=== PATIENT | male | born 1945 | race African-American/Black ===

== ENCOUNTER 2016-11-14 18:25 | Emergency (ER) | payer OTHER ==
[~2016-11-14] VITALS: Ht 175.3 cm; Wt 90.7 kg
[~2016-11-14 18:25] MED LIST: AUGMENTIN 875-1 EAC1 ORAL; AZITHROMYCIN250 MG ORAL; LEVAQUIN500 MG PO; NKM; NORCO 5-325 TA1 EACH ORAL; NORVASC5 MG ORAL; OMEPRAZOLE40 M1 ORAL; PHENERGAN/CODE120 ML PO; PHENERGAN6.25 MG/5 ORAL; PRILOSEC20 MG ORAL; PROMETHAZINE-C118 M1 ORAL; ROBAXIN-750750 MG PO; TAMIFLU75 MG ORAL; UNOBMED; ZANTAC150 MG ORAL
[2016-11-14 18:55] VITALS: BP 148/93
--- NOTE | 2016-11-14 19:42 | Emergency Room Report ---
History of Present Illness General Chief Complaint: Upper Respiratory Illness Source: Patient Present Illness HPI Patient presents with complaints of cough and congestion Sore throat Patient felt some epigastric discomfort as well He does complain of sputum production with the cough Denies any back or flank pain Patient complaining of some left-sided facial neuropathy as well associated with this Denies any headache denies any neck pain or photophobia Denies any fall or trauma Denies any focal weakness Allergies: Coded Allergies: No Known Allergies (Unverified , 08/08/12) Patient History Past Medical History: see triage record Pertinent Family History: none Reviewed Nursing Documentation: PMH: Agreed, PSxH: Agreed Nursing Documentation-PMH Hx Cardiac Problems: Yes - HTN Hx Hypertension: Yes Hx Cancer: No Hx Gastrointestinal Problems: No Hx Neurological Problems: No Review of Systems All Other Systems: negative except mentioned in HPI Physical Exam Vital Signs Date Time Temp Pulse Resp B/P Pulse Ox O2 Delivery O2 Flow Rate FiO2 11/14/16 18:32 98.8 60 16 151/95 95 Room Air Sp02 EP Interpretation: reviewed, normal General Appearance: well appearing, no apparent distress Head: normocephalic, atraumatic Eyes: bilateral eye EOMI, bilateral eye PERRL ENT: hearing grossly normal, normal pharynx, TMs + canals normal, uvula midline Neck: full range of motion, supple, no meningismus, no bony tend Respiratory: lungs clear, normal breath sounds, no rhonchi, no respiratory distress, no retraction, no accessory muscle use Cardiovascular #1: normal peripheral pulses, regular rate, rhythm, no edema, no gallop, no JVD, no murmur Gastrointestinal: normal bowel sounds, non tender, soft, no mass, no organomegaly, non-distended, no guarding, no hernia, no pulsatile mass, no rebound Genitourinary: no CVA tenderness Musculoskeletal: normal inspection Neurologic: oriented x3, responsive, industrial roofer helper III-XII nml as tested, motor strength/ tone normal, sensory intact Psychiatric: mood/affect normal Skin: normal color, no rash, warm/dry, palpation normal Lymphatic: normal inspection, no adenopathy Medical Decision Making Diagnostic Impression: Primary Impression: Upper respiratory infection Additional Impressions: Bronchitis Influenza-like illness ER Course Multiple differentials were considered given the patient's presentation Patient's facial discomfort appears to be mainly in the sinus region for had an axillary White blood for count was mildly low in line with a likely viral presentation Patient's x-rays appropriate Saturation and hemodynamically continues to be appropriate I did not feel the patient met any further criteria for imaging or inpatient care and will have initial conservative outpatient trial Labs Test 11/14/16 20:00 White Blood Count 3.8 K/UL (4.8-10.8) Red Blood Count 5.66 M/UL (4.70-6.10) Hemoglobin 16.5 G/DL (14.2-18.0) Hematocrit 51.4 % (42.0-52.0) Mean Corpuscular Volume 91 FL (80-99) Mean Corpuscular Hemoglobin 29.1 PG (27.0-31.0) Mean Corpuscular Hemoglobin Concent 32.0 G/DL (32.0-36.0) Red Cell Distribution Width 13.1 % (11.6-14.8) Platelet Count 225 K/UL (150-450) Mean Platelet Volume 8.1 FL (6.5-10.1) Neutrophils (%) (Auto) 50.5 % (45.0-75.0) Lymphocytes (%) (Auto) 27.4 % (20.0-45.0) Monocytes (%) (Auto) 18.9 % (1.0-10.0) Eosinophils (%) (Auto) 0.5 % (0.0-3.0) Basophils (%) (Auto) 2.7 % (0.0-2.0) Sodium Level 139 mEQ/L (135-145) Potassium Level 3.7 mEQ/L (3.4-4.9) Chloride Level 98 mEQ/L (98-107) Carbon Dioxide Level 25 mEQ/L (20-30) Anion Gap 16 (5-15) Blood Urea Nitrogen 13 mg/dL (7-23) Creatinine 1.2 mg/dL (0.7-1.2) Estimat Glomerular Filtration Rate mL/min (>60) Glucose Level 98 mg/dL (74-106) Calcium Level 8.3 mg/dL (8.6-10.2) Total Bilirubin < 0.2 mg/dL (0.0-1.2) Aspartate Amino Transf (AST/SGOT) 20 U/L (5-40) Alanine Aminotransferase (ALT/SGPT) 12 U/L (3-41) Alkaline Phosphatase 78 U/L (40-129) Total Creatine Kinase 149 U/L (38-174) Creatine Kinase MB < 1.5 ng/mL (< 6.7) Creatine Kinase MB Relative Index 1.0 Troponin I < 0.30 ng/mL (<=0.30) Pro-B-Type Natriuretic Peptide 63 pg/mL (0-125) Total Protein 6.7 g/dL (6.6-8.7) Albumin 3.9 g/dL (3.5-5.2) Globulin 2.8 g/dL Albumin/Globulin Ratio 1.3 (1.0-2.7) Rhythm Strip Diag. Results EP Interpretation: yes Rate: 67 Rhythm: NSR, no PVC's, no ectopy Chest X-Ray Diagnostic Results EP Interpretation: Yes Findings: no consolidation, no effusion, no pneumothorax Number of Views: 1 Last Vital Signs Date Time Temp Pulse Resp B/P Pulse Ox O2 Delivery O2 Flow Rate FiO2 11/14/16 18:57 60 16 Room Air 11/14/16 18:55 98.7 148/93 96 Status: improved Disposition: HOME, SELF-CARE Condition: Improved Scripts Ibuprofen* (MOTRIN*) 600 Mg Tablet 600 MG ORAL Q8H Y for For Pain, #20 TAB 0 Refills Prov: CECILY HOUGH D.O. 11/14/16 Promethazine HCl/Codeine (Prometh-Codein 6.25-10 mg/5 ml) 5 Ml Syrup 5 ML PO QHS for 5 Days, ML Prov: CECILY HOUGH D.O. 11/14/16 Azithromycin* (ZITHROMAX*) 250 Mg Tablet 250 MG ORAL DAILY, #6 TAB 0 Refills Take two tablets by mouth today, then take one tablet by mouth daily for four days Prov: CECILY HOUGH D.O. 11/14/16 Additional Instructions: Patient is provided with the discharge instructions notified to follow up with primary doctor in the next 2-3 days otherwise return to the er with any worsening symptoms. CECILY HOUGH D.O. Nov 14, 2016 19:42
[2016-11-14 20:08] LABS: BASOPHILS % (AUTO) 2.7 % (0.0-2.0); EOSINOPHILS % (AUTO) 0.5 % (0.0-3.0); LYMPHOCYTES % (AUTO) 27.4 % (20.0-45.0); MEAN CORPUSCULAR HEMOGLOBIN 29.1 PG (27.0-31.0); MEAN CORPUSCULAR VOLUME 91 FL (80-99); MEAN PLATELET VOLUME 8.1 FL (6.5-10.1); MONOCYTES % (AUTO) 18.9 % (1.0-10.0); NEUTROPHILS % (AUTO) 50.5 % (45.0-75.0); PLATELET COUNT 225 K/UL (150-450); RED BLOOD COUNT 5.66 M/UL (4.70-6.10); RED CELL DISTRIBUTION WIDTH 13.1 % (11.6-14.8); WHITE BLOOD COUNT 3.8 K/UL (4.8-10.8)
[2016-11-14 20:25] LABS: TROPONIN I < 0.30 ng/mL (<=0.30)
[2016-11-14 20:26] LABS: ALANINE AMINOTRANSFERASE 12 U/L (3-41); ALBUMIN/GLOBULIN RATIO 1.3 (1.0-2.7); ASPARTATE AMINO TRANSFERASE 20 U/L (5-40); CALCIUM 8.3 mg/dL (8.6-10.2); CHLORIDE 98 mEQ/L (98-107); CREATININE 1.2 mg/dL (0.7-1.2); HEMOLYSIS 4; POTASSIUM 3.7 mEQ/L (3.4-4.9); SODIUM 139 mEQ/L (135-145); TOTAL PROTEIN 6.7 g/dL (6.6-8.7)
[2016-11-14 20:36] LABS: CKMB < 1.5 ng/mL (< 6.7)
[2016-11-14 20:39] VITALS: BP 151/91
[2016-11-14] MEDS ORDERED: Ketorolac 30mg Inj IV ONE (20:45)
[2016-11-14 20:46] LABS: ANION GAP 16 (5-15); CARBON DIOXIDE 25 mEQ/L (20-30)
[2016-11-14] MEDS ORDERED: IBUPROFEN600 MG ORAL (21:01)
[2016-11-14] MEDS ORDERED: AZITHROMYCIN250 MG ORAL (21:01)
[2016-11-14] MEDS ORDERED: PROMETH-CODEIN 65 ML PO (21:01)
[2016-11-14 21:37] VITALS: BP 151/91
--- NOTE | 2016-11-15 08:59 | Diagnostic Imaging Report ---
Indications: Chest pain Technique: Portable AP chest Findings: Comparison: None Cardiac silhouette remains normal in size. Pulmonary vasculature remains within normal limits. Lungs and pleura remain clear. Mild elongation of thoracic aorta, focal eventration medial aspect right hemidiaphragm unchanged. IMPRESSION: No evidence of acute disease, unchanged Stable chronic changes as described
== END 2016-11-14 21:37 | disposition home or self-care (01) ==
LOC: EMR 19:00
DX: J40 Bronchitis, not specified as acute or chronic (principal); J11.1 Influenza due to unidentified influenza virus with other respiratory manifestations; I10 Essential (primary) hypertension
CPT/HCPCS: 36415; 71010; 80053; 82550; 82553; 83880; 84484; 85025; 96374; 96375; 99284; J1885; J7040

== ENCOUNTER 2018-07-23 14:24 | Emergency (ER) | payer OTHER ==
[~2018-07-23] VITALS: Ht 175.3 cm; Wt 86.2 kg
[~2018-07-23 14:24] MED LIST changes: +IBUPROFEN600 MG ORAL; +PROMETH-CODEIN 65 ML PO
[2018-07-23 14:53] VITALS: BP 140/90
[2018-07-23] MEDS ORDERED: Methocarbamol 500mg tab ORAL ONE (15:00)
[2018-07-23] MEDS ORDERED: Ketorolac 30mg Inj IM ONE (15:00)
--- NOTE | 2018-07-23 15:09 | Emergency Room Report ---
History of Present Illness General Chief Complaint: Pain Source: Patient Present Illness HPI 73-year-old male patient presents ER complaining of left shoulder and arm pain for the past 4 days. States that 3 days ago he went to [facility] to be seen for pain symptoms. Reports that he had x-ray and labs done at that time and they were negative for any cardiac disease or fracture, was instructed to follow-up with PCP to get MRI. States that he was instructed to return to the hospital pain symptoms worsen, was discharged with ibuprofen 600 mg, states it is been taking the ibuprofen but it has not helped with the pain symptoms. Denies injury or trauma, states that he "may have slept funny" which is causing his pain symptoms. Reports pain with elevating arm above his head. Reports right-hand dominant. Reports numbness and tingling in hands, denies complete loss of sensation. Reports no history of diabetes. Denies history of stroke or heart attack. States came to the ER today for further pain relief. denies fever, chest pain, shortness of breath, abdominal pain. reports history of high blood pressure, states does not take any medication. Allergies: Coded Allergies: No Known Allergies (Unverified , 08/08/12) Patient History Past Medical History: see triage record Reviewed Nursing Documentation: PMH: Agreed; PSxH: Agreed Nursing Documentation-PMH Past Medical History: No History, Except For Hx Cardiac Problems: Yes - heart valve problem Hx Hypertension: Yes Hx Cancer: No Hx Gastrointestinal Problems: No Hx Neurological Problems: No Review of Systems All Other Systems: negative except mentioned in HPI Physical Exam Vital Signs Date Time Temp Pulse Resp B/P (MAP) Pulse Ox O2 Delivery O2 Flow Rate FiO2 07/23/18 14:30 97.9 71 16 140/90 95 Room Air 97.9 Sp02 EP Interpretation: reviewed, normal General Appearance: well appearing, no apparent distress, alert, GCS 15, non- toxic Head: normocephalic, atraumatic Eyes: bilateral eye normal inspection, bilateral eye PERRL ENT: hearing grossly normal, normal pharynx, no angioedema, normal voice, uvula midline, moist mucus membranes Neck: full range of motion Respiratory: lungs clear, normal breath sounds, no rhonchi, no respiratory distress, no accessory muscle use, no wheezing, speaking full sentences Cardiovascular #1: regular rate, rhythm, no edema Cardiovascular #2: 2+ radial (R), 2+ radial (L) Musculoskeletal: back normal, digits/nails normal, gait/station normal, other - full passive range of motion, decreased passive range of motion, NVI, sensation intaction to light touch, tender - left shoulder Neurologic: alert, oriented x3, responsive, motor strength/tone normal, sensory intact Psychiatric: mood/affect normal Skin: no rash Lymphatic: no adenopathy Medical Decision Making PA Attestation Dr. Perry is my supervising Physician whom patient management has been discussed with. Diagnostic Impression: Primary Impression: Shoulder sprain ER Course Pt. presents to the ED c/o chest pain. Ddx considered but are not limited to [place], arrhythmia, DVT, PE, penumonia, bronchitis, costochondritis, anxiety, sprain, strain, arthritis. no erythema, no edema, no warmth to touch, low suspicion for septic joint. Low suspicion for cardiac cause of pain. Will order labs to rule out. Vital signs: are WNL, pt. is afebrile Blood pressure mildly elevated at this time, will continue to monitor. Denies chest pain, shortness of breath, vision changes, does not require acute intervention at ER at this time. Follow with primary care provider discuss further treatment and referral. Advised on low-sodium diet, advised on diet and exercise. Ordered X-ray, US, labs, troponin, EKG and pain medication. ER COURSE EKG shows no ST elevations or arrhythmias, repeat EKG consistent with initial EKG findings. Labs shows no elevation in WBC or LFTs, no electrolyte abnormalities CK-MB, ESR within normal limits Troponin negative CXR negative for acute disease Discuss results with the patient. Provided patient with copy of results. Instructed patient to followup with PCP and discuss results of report with patient, discuss need for further treatment and referral. Patient denies shortness of breath, EKG and chest x-ray unremarkable, troponin negative, low suspicion for [place] or CHF. Low suspicion for cardiac etiology of pain. Followup with primary care provider, discuss referral to cardiology and urban gardening specialist for MRI to discuss blood pressure. US of left upper extremity negative for DVT. Pain in arm and shoulder worse with movement, likely musculoskeletal in nature, patient has full passive range of motion, needs MRI outpatient basis. Patient reports xray done previously negative, no acute trauma or injury since that time, does not require repeat xray currently. Patient reports pain symptoms improved while in the ER. will provide patient with arm sling, instructed to increase ROM and perform exercises to prevent stiffness. Provided with contact information for orthopedic urgent care, call schedule appointment, discuss referral to physical therapy and pain management at that time, discuss need for MRI imaging of shoulder. Provided patient with contact information for free and low-cost healthcare clinics unable to contact insurance and get a primary care provider to establish care. DISCHARGE: Rx provided for Robaxin Rx provided for lidocaine patches At this time pt. is stable for d/c to home. Patient is resting comfortably, in no acute distress, nontoxic appearing, talking without difficulty. Will provide printed patient care instructions, and any necessary prescriptions. Patient instructed to follow with primary care provider in 1-3 days. Followup with primary care provider for further pain medication rx. Followup with produce clerk and eye doctor. Care plan and follow up instructions have been discussed with the patient prior to discharge. Take medications as directed. Patient questions asked and answered. Patient reports understanding and agreement to treatment plan. ER precautions given, patient instructed to return to ER immediately for any new or worsening of symptoms. - Please note that this Emergency Department Report was dictated using [employer] forwarding system markup clerk technology software, occasionally this can lead to erroneous entry secondary to interpretation by the dictation equipment. Labs Test 07/23/18 15:40 White Blood Count 10.3 K/UL (4.8-10.8) Red Blood Count 5.52 M/UL (4.70-6.10) Hemoglobin 15.2 G/DL (14.2-18.0) Hematocrit 46.7 % (42.0-52.0) Mean Corpuscular Volume 85 FL (80-99) Mean Corpuscular Hemoglobin 27.5 PG (27.0-31.0) Mean Corpuscular Hemoglobin Concent 32.5 G/DL (32.0-36.0) Red Cell Distribution Width 12.8 % (11.6-14.8) Platelet Count 343 K/UL (150-450) Mean Platelet Volume 7.4 FL (6.5-10.1) Neutrophils (%) (Auto) 65.5 % (45.0-75.0) Lymphocytes (%) (Auto) 22.3 % (20.0-45.0) Monocytes (%) (Auto) 7.6 % (1.0-10.0) Eosinophils (%) (Auto) 4.0 % (0.0-3.0) Basophils (%) (Auto) 0.7 % (0.0-2.0) Erythrocyte Sedimentation Rate 13 MM/HR (0-20) Sodium Level 141 MMOL/L (136-145) Potassium Level 4.5 MMOL/L (3.5-5.1) Chloride Level 106 MMOL/L (98-107) Carbon Dioxide Level 26 MMOL/L (21-32) Anion Gap 9 mmol/L (5-15) Blood Urea Nitrogen 14 mg/dL (7-18) Creatinine 1.2 MG/DL (0.55-1.30) Estimat Glomerular Filtration Rate mL/min (>60) Glucose Level 90 MG/DL (74-106) Calcium Level 9.0 MG/DL (8.5-10.1) Total Bilirubin 0.3 MG/DL (0.2-1.0) Aspartate Amino Transf (AST/SGOT) 18 U/L (15-37) Alanine Aminotransferase (ALT/SGPT) 26 U/L (12-78) Alkaline Phosphatase 110 U/L (46-116) Total Creatine Kinase 175 U/L (26-308) Creatine Kinase MB 1.1 NG/ML (0.0-3.6) Creatine Kinase MB Relative Index 0.6 Troponin I 0.000 ng/mL (0.000-0.056) Total Protein 7.6 G/DL (6.4-8.2) Albumin 3.9 G/DL (3.4-5.0) Globulin 3.7 g/dL Albumin/Globulin Ratio 1.1 (1.0-2.7) EKG Diagnostic Results Rate: normal Rhythm: NSR ST Segments: no acute changes ASA given to the pt in ED: No PA Scribe Text Tre Villarreal PA-C Rhythm Strip Diag. Results EP Interpretation: yes Rate: 63 Rhythm: NSR, no PVC's, no ectopy PA Scribe Text Tre Villarreal PA-C Chest X-Ray Diagnostic Results Chest X-Ray Diagnostic Results : Chest X-Ray Ordered: Yes # of Views/Limited/Complete: 1 View Indication: Chest Pain EP Interpretation: Yes PA Xray: Interpretation reviewed, by supervising MD, and agrees with findings. Interpretation: no consolidation, no effusion, no pneumothorax, no acute cardiopulmonary disease Impression: No acute disease PEARL Villarreal PA-C CT/MRI/US Diagnostic Results CT/MRI/US Diagnostic Results : Imaging Test Ordered: left arm upper extremity US Impression negative for DVT, everything within normal limits Last Vital Signs Date Time Temp Pulse Resp B/P (MAP) Pulse Ox O2 Delivery O2 Flow Rate FiO2 07/23/18 15:01 97.9 07/23/18 14:53 71 16 140/90 95 Room Air Status: improved Disposition: HOME, SELF-CARE Condition: Stable Scripts Methocarbamol* (ROBAXIN*) 500 Mg Tablet 500 MG PO TID, #21 TAB 0 Refills Prov: Forrest Villarreal 07/23/18 Lidocaine (Lidocaine) 1 Each Adh..patch 5 % TP DAILY for 7 Days, #7 PATCH Prov: Forrest Villarreal 07/23/18 Referrals: [facility]ERR[facility] (PCP) Patient Instructions: Generic Shoulder Exercises-SportsMed, Impingement Syndrome, Rotator Cuff, Bursitis With Rehab-SportsMed, Shoulder Sprain Additional Instructions: Patient instructed to follow up with primary care provider and discuss further referral to orthopedics/physical therapy/pain management as needed. If unable to followup with PCP, followup with orthopedic urgent care in 5-7 days , call to schedule appointment. Patient instructed on RICE method: rest, ice, compression, elevation. Patient instructed to WBAT. Take medications as directed. Patient questions asked and answered. ER precautions given, patient instructed to return to ER immediately for any new or worsening of symptoms. [facility] [address] [facility], [address] [email or web address] Forrest Villarreal Jul 23, 2018 15:08
--- NOTE | 2018-07-23 15:48 | Diagnostic Imaging Report ---
EXAM: XR Chest, 1 View CLINICAL HISTORY: PAIN TECHNIQUE: Frontal view of the chest. COMPARISON: No relevant prior studies available. FINDINGS: Lungs: No consolidation. Pleural space: Unremarkable. No pneumothorax. Heart: Unremarkable. No cardiomegaly. Mediastinum: Unremarkable. Bones/joints: No acute fracture. IMPRESSION: No acute cardiopulmonary disease.
[2018-07-23 15:53] LABS: BASOPHILS % (AUTO) 0.7 % (0.0-2.0); HEMATOCRIT 46.7 % (42.0-52.0); HEMOGLOBIN 15.2 G/DL (14.2-18.0); LYMPHOCYTES % (AUTO) 22.3 % (20.0-45.0); MEAN CORPUSCULAR VOLUME 85 FL (80-99); MONOCYTES % (AUTO) 7.6 % (1.0-10.0); NEUTROPHILS % (AUTO) 65.5 % (45.0-75.0); PLATELET COUNT 343 K/UL (150-450); RED BLOOD COUNT 5.52 M/UL (4.70-6.10); RED CELL DISTRIBUTION WIDTH 12.8 % (11.6-14.8); WHITE BLOOD COUNT 10.3 K/UL (4.8-10.8)
[2018-07-23 16:02] LABS: ANION GAP 9 mmol/L (5-15); BLOOD UREA NITROGEN 14 mg/dL (7-18); CARBON DIOXIDE 26 MMOL/L (21-32); CHLORIDE 106 MMOL/L (98-107); CREATININE 1.2 MG/DL (0.55-1.30); POTASSIUM 4.5 MMOL/L (3.5-5.1); SODIUM 141 MMOL/L (136-145)
[2018-07-23 16:16] LABS: ALANINE AMINOTRANSFERASE 26 U/L (12-78); ALBUMIN 3.9 G/DL (3.4-5.0); ALBUMIN/GLOBULIN RATIO 1.1 (1.0-2.7); ALKALINE PHOSPHATASE 110 U/L (46-116); ASPARTATE AMINO TRANSFERASE 18 U/L (15-37); BILIRUBIN,TOTAL 0.3 MG/DL (0.2-1.0); CKMB 1.1 NG/ML (0.0-3.6); CREATINE KINASE 175 U/L (26-308)
[2018-07-23] MEDS ORDERED: LIDOCAINE700 M1 TP (17:00)
[2018-07-23] MEDS ORDERED: ROBAXIN500 MG PO (17:00)
[2018-07-23 17:10] VITALS: BP 135/85
--- NOTE | 2018-07-24 13:44 | Cardiology Report ---
APPROVED REPORT EKG Measurement Heart [id number] Normal sinus rhythm Left axis deviation Moderate voltage criteria for LVH, may be normal variant Abnormal ECG
--- NOTE | 2018-07-24 13:46 | Cardiology Report ---
APPROVED REPORT EKG Measurement Heart [id number] Sinus rhythm with premature atrial complexes Moderate voltage criteria for LVH, may be normal variant Borderline ECG
== END 2018-07-23 17:11 | disposition home or self-care (01) ==
LOC: EMR 15:01
DX: S43.402A Unspecified sprain of left shoulder joint, initial encounter (principal); X58.XXXA Exposure to other specified factors, initial encounter; Y93.9 Activity, unspecified; Y92.9 Unspecified place or not applicable; I10 Essential (primary) hypertension
CPT/HCPCS: 36415; 71045; 80053; 82550; 82553; 84484; 85025; 85651; 93005; 93971; 99284; J1885

== ENCOUNTER 2020-06-19 15:44 | Emergency (ER) | payer MEDICARE ==
[~2020-06-19] VITALS: Ht 175.3 cm; Wt 77.1 kg
[~2020-06-19 15:44] MED LIST changes: +LIDOCAINE700 M1 TP; +ROBAXIN500 MG PO
[2020-06-19 16:05] VITALS: BP 136/86
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
[2020-06-19] MEDS ORDERED: SILVER SULFADIA50 GM TP (16:34)
[2020-06-19] MEDS ORDERED: IBU800 MG PO (16:34)
[2020-06-19] MEDS ORDERED: CEPHALEXIN500 MG ORAL (16:34)
[2020-06-19 16:55] VITALS: BP 136/86
--- NOTE | 2020-06-19 16:55 | NUR ---
ED Nurse Note: Pt cleared by health care Provider for discharge. DC instructions/prescription was given and explained to pt and verbalized understanding of teachings. All medical deviecs such as ID band removed. Pt is AAO x4, ambulatory and left with all personal belongings.
== END 2020-06-19 16:55 | disposition home or self-care (01) ==
LOC: EMR 16:25
DX: T22.112A Burn of first degree of left forearm, initial encounter (principal); T21.24XA Burn of second degree of lower back, initial encounter; T22.131A Burn of first degree of right upper arm, initial encounter; X11.8XXA Contact with other hot tap-water, initial encounter; Y92.9 Unspecified place or not applicable; I10 Essential (primary) hypertension
CPT/HCPCS: 99283